=== PATIENT | female | born 1960 | race Caucasian/White ===

== ENCOUNTER 2018-04-01 19:23 | Emergency (ER) | payer SELFPAY ==
[2018-04-01] MEDS ORDERED: ONDANSETRON HCL INJ/PF 4 MG/2 ML SDV IV ONE (19:49)
[2018-04-01] MEDS ORDERED: HYDROMORPHONE HCL INJ/PF 2 MG/ML AMPULE IV ONE (19:49)
--- NOTE | 2018-04-01 19:56 | RADIOLOGY REPORT (SQ) ---
EXAM DESCRIPTION: WRIST LEFT 3 VIEWS COMPLETED DATE/TIME: 04/01/2018 7:39 pm REASON FOR STUDY: fell off horse COMPARISON: None. NUMBER OF VIEWS: Three views. TECHNIQUE: AP, lateral, and oblique radiographic images acquired of the left wrist. LIMITATIONS: None. FINDINGS: MINERALIZATION: Normal. BONES: Transverse fracture of the distal radius with volar angulation. There appears to be a fractur e component that extends to the articular surface. SOFT TISSUES: No soft tissue swelling. No foreign body. OTHER: No other significant finding. IMPRESSION: Fracture of the distal radius. TECHNICAL DOCUMENTATION: JOB ID: [id number] [employer]- All Rights Reserved Reading location - IP/workstation name: [email or web address]
--- NOTE | 2018-04-01 19:57 | ER Document Report ---
ED Hand/Wrist Injury - General Mode of Arrival: Ambulatory Information source: Patient TRAVEL OUTSIDE OF THE [place] IN LAST 30 DAYS: No <ROWDY VELASQUEZ - Last Filed: 04/02/18 00:25> <MANASA TRIANA - Last Filed: 04/02/18 00:28> - General Chief Complaint: Wrist Injury Stated Complaint: LEFT WRIST INJURY Time Seen by Provider: 04/01/18 19:40 Notes: Patient is a 57 year old female with hypothyroidism, osteopenia and high cholesterol presents to the emergency department complaining of left wrist pain and swelling after a fall. Patient states she fell off of her horse prior to arrival today stating she landed on her buttocks and then left wrist further stating she heard and felt something "crack". She complains of numbness and a cool sensations of her left hands and fingers as well as some nausea. She denies head trauma, loss of consciousness or any other focal pain. Patient states she is right handed. Patient is currently taking Synthroid and Lovastatin. (ROWDY VELASQUEZ) - Related Data Allergies/Adverse Reactions: Penicillins Allergy (Verified 04/01/18 19:25) Past Medical History - General Information source: Patient - Social History Smoking Status: Current Some Day Smoker Cigarette use (# per day): Yes Chew tobacco use (# tins/day): No Smoking Education Provided: No Frequency of alcohol use: Occasional Drug Abuse: None Family History: Reviewed & Not Pertinent - Past Medical History Cardiac Medical History: Reports: Hx Hypercholesterolemia Endocrine Medical History: Reports: Hx Hypothyroidism Musculoskeletal Medical History: Reports Other - Osteopenia <ROWDY VELASQUEZ - Last Filed: 04/02/18 00:25> Review of Systems - Review of Systems Constitutional: No symptoms reported EENT: No symptoms reported Cardiovascular: No symptoms reported Respiratory: No symptoms reported Gastrointestinal: No symptoms reported Genitourinary: No symptoms reported Female Genitourinary: No symptoms reported Musculoskeletal: See HPI Skin: No symptoms reported Hematologic/Lymphatic: No symptoms reported Neurological/Psychological: No symptoms reported -: Yes All other systems reviewed and negative <ROWDY VELASQUEZ - Last Filed: 04/02/18 00:25> Physical Exam <ROWDY VELASQUEZ - Last Filed: 04/02/18 00:25> <MANASA TRIANA - Last Filed: 04/02/18 00:28> - Vital signs Vitals: BP Pulse Ox 118/89 H 100 04/01/18 19:51 04/01/18 19:51 - Notes Notes: GENERAL: Alert, interacts well. No other signs of trauma or tenderness to palpation outside of what is described in extremities. HEAD: Normocephalic, atraumatic. EYES: Pupils equal, round, and reactive to light. Extraocular movements intact. ENT: Oral mucosa moist, tongue midline. NECK: Full range of motion. Supple. Trachea midline. No midline bony tenderness to palpation. LUNGS: No respiratory distress. ABDOMEN: Soft, non-tender. Non-distended. EXTREMITIES: Moves all 4 extremities spontaneously. There is a dorsal deformity to the left wrist which is tender to palpation. Digits 3-5 are cool to touch compared to digits 1 and 2. Capillary refill normal. Sensation is intact. Radial pulses 2/4 bilaterally. No cyanosis. NEUROLOGICAL: Alert and oriented x3. Normal speech. PSYCH: Normal affect, normal mood. SKIN: Dry. Superficial abrasion to the volar aspect of the left wrist, no active bleeding. Ant bites to the dorsal aspect of the left wrist, patient states these were presents before the fall. (ROWDY VELASQUEZ) Course <ROWDY VELASQUEZ - Last Filed: 04/02/18 00:25> <MANASA TRIANA - Last Filed: 04/02/18 00:28> - Re-evaluation Re-evalutation: 04/01/18 21:19 X-ray shows fracture of distal radius and dislocation of the wrist. Patient was given ketamine after risks and benefits of conscious sedation and reduction were discussed, patient tolerated reduction well, splint was placed, postreduction x-rays reveal reduction of the dislocation and acceptable alignment of the fracture. There is a fracture through the articular surface of the radius. There were superficial abrasions over the volar aspect of the left wrist which the patient recalls from prior. There is no active bleeding. I do not think this is an open fracture. I did discuss this case with Dr. Burnett including the fact that there are several breaks in the skin none of which have any bleeding coming from them or appear to be new. We both agree that this is not an open fracture and no antibiotics are indicated in this case. He agrees to see the patient in follow-up as an outpatient in his office on Sunday. The patient is instructed to call his office first thing tomorrow morning to arrange outpatient follow-up. Patient was placed in a sugar tong splint as well as a sling. 04/02/18 00:27 (MANASA TRIANA) - Vital Signs Vital signs: Temp Pulse Resp BP Pulse Ox 98.5 F 88 19 115/82 99 04/01/18 21:44 04/01/18 20:53 04/01/18 21:30 04/01/18 21:30 04/01/18 21:30 Procedures - Immobilization Left Distal Wrist Time completed: 20:40 Pre-Proc Neuro Vasc Exam: Normal Immobilizer type: Sugar tong Performed by: Provider, PCT Post-Proc Neuro Vasc Exam: Normal Alignment checked and good: Yes - Joint Reduction/Fracture Care Left Distal Wrist Time completed: 20:37 Consent obtained: Yes Conscious sedation: Yes Pre-procedure NV exam: Yes Fracture: Closed Post-procedure NV exam: Yes Post-reduction x-ray: Joint reduced Reduction attempts: 1 Complications: No <ROWDY VELASQUEZ - Last Filed: 04/02/18 00:25> - Immobilization Left Distal Wrist Post-Proc Neuro Vasc Exam: Unchanged from pre-exam left arm sling Pre-Proc Neuro Vasc Exam: Normal Immobilizer type: Sling Performed by: PCT Post-Proc Neuro Vasc Exam: Normal, Unchanged from pre-exam Alignment checked and good: Yes <MANASA TRIANA - Last Filed: 04/02/18 00:28> Discharge <ROWDY VELASQUEZ - Last Filed: 04/02/18 00:25> <MANASA TRIANA - Last Filed: 04/02/18 00:28> - Discharge Clinical Impression: Closed left radial fracture Qualifiers: Encounter type: initial encounter Radius location: distal Fracture morphology: other intra-articular Qualified Code(s): S52.572A - Other intraarticular fracture of lower end of left radius, initial encounter for closed fracture Left wrist dislocation Qualifiers: Encounter type: initial encounter Qualified Code(s): S63.005A - Unspecified dislocation of left wrist and hand, initial encounter Fall Qualifiers: Encounter type: initial encounter Qualified Code(s): W19.XXXA - Unspecified fall, initial encounter Condition: Stable Disposition: HOME, SELF-CARE Additional Instructions: I spoke with Dr. Burnett, he would like you to call his office first thing tomorrow morning to arrange a follow-up appointment for Sunday for your fracture and dislocation of your left wrist. You have been placed in a splint. If your fingers become numb and tingly, you cannot feel them please loosen the splint. If this does not improve the sensation to her fingers please return to the emergency department. Please take ibuprofen 800 mg every 8 hours as needed for pain. If this does not work you may also take the Percocet as directed. Prescriptions: Ondansetron [Zofran Odt 4 mg Tablet] 1 - 2 tab PO Q4H PRN #15 tab.rapdis PRN Reason: For Nausea/Vomiting Oxycodone HCl/Acetaminophen [Percocet 5-325 mg Tablet] 1 tab PO Q4H PRN #15 tablet PRN Reason: Forms: Return to Work Referrals: YUNI BURNETT DO [ACTIVE STAFF] - 04/03/18 (Call tomorrow morning to arrange a follow-up appointment for Sunday.) Scribe Attestation: 04/02/18 00:28 I personally performed the services described in the documentation, reviewed and edited the documentation which was dictated to the scribe in my presence, and it accurately records my words and actions. (MANASA TRIANA) Scribe Documentation - Scribe Written by Scribe:: Ye Perales, 04/01/2018 20:03 acting as scribe for :: Joshua <ROWDY VELASQUEZ - Last Filed: 04/02/18 00:25>
[2018-04-01] MEDS ORDERED: KETAMINE HCL INJ 500 MG/10 ML VIAL IV ONE ×2 (20:09→20:45)
[2018-04-01 21:38] VITALS: BP 115/82
[2018-04-01] MEDS ORDERED: OXYCODONE-ACETAMINOPHEN 5-325 MG TABLET PO ONE (21:39)
--- NOTE | 2018-04-01 21:44 | RADIOLOGY REPORT (SQ) ---
EXAM DESCRIPTION: XR WRIST 1-2 VIEWS COMPLETED DATE/TME: 04/01/2018 20:46 CLINICAL HISTORY: 57 years, Female, post-reduction COMPARISON: 04/01/2018 NUMBER OF VIEWS: Two TECHNIQUE: AP and lateral LIMITATIONS: None. FINDINGS: Overlying cast material limits fine bony detail. Note is again made of the fracture of the distal radius. There has been some interval reduction with improvement in alignment. Fracture appears to extend to the articular surface. IMPRESSION: Interval reduction of comminuted intra-articular distal radial fracture with improved alignment 2010 [employer]- All Rights Reserved
== END 2018-04-01 22:00 | disposition home or self-care (01) ==
LOC: ER 19:23
PROC: 0PSJXZZ Reposition Left Radius, External Approach (ICD-10-PCS; principal; 2018-04-01)
DX: S63.005A Unspecified dislocation of left wrist and hand, initial encounter (principal); S52.572A Other intraarticular fracture of lower end of left radius, initial encounter for closed fracture; M25.532 Pain in left wrist; M79.89 Other specified soft tissue disorders; R11.0 Nausea; W19.XXXA Unspecified fall, initial encounter; F17.210 Nicotine dependence, cigarettes, uncomplicated
CPT/HCPCS: 99284; 99153; 99152; 96374; 96375; 73100; 73110; 25605; J3490; J1170; J2405

== ENCOUNTER 2018-04-09 08:12 | Day surgery (SDC) | payer SELFPAY ==
[2018-04-05 10:51] LABS: APPEARANCE,URINE CLEAR; BILIRUBIN,URINE NEGATIVE (NEGATIVE); COLOR,URINE STRAW; GLUCOSE, URINE NEGATIVE (NEGATIVE); KETONES,URINE NEGATIVE (NEGATIVE); LEUKOCYTE ESTERASE,URINE NEGATIVE (NEGATIVE); NITRITE,URINE NEGATIVE (NEGATIVE); PROTEIN,URINE NEGATIVE (NEGATIVE); URINE SPECIFIC GRAVITY 1.004; UROBILINOGEN,URINE NEGATIVE mg/dL (<2.0)
[2018-04-05 11:41] LABS: HEMATOCRIT 36.6 % (36.0-47.0); HEMOGLOBIN 12.3 g/dL (12.0-15.5); MEAN CORPUSCULAR HEMOGLOBIN 30.4 pg (27.0-33.4); MEAN CORPUSCULAR HGB CONC 33.5 g/dL (32.0-36.0); MEAN CORPUSCULAR VOLUME 91 fl (80-97); PLATELET COUNT 263 10^3/uL (150-450); RED BLOOD COUNT 4.05 10^6/uL (3.72-5.28); RED CELL DISTRIBUTION WIDTH 13.5 % (11.5-14.0); WHITE BLOOD COUNT 9.8 10^3/uL (4.0-10.5)
[2018-04-05 12:04] LABS: ANION GAP 8 (5-19); BLOOD UREA NITROGEN 13 mg/dL (7-20); CALCIUM 9.1 mg/dL (8.4-10.2); CARBON DIOXIDE 27 mmol/L (22-30); CHLORIDE 107 mmol/L (98-107); GLUCOSE 86 mg/dL (75-110); POTASSIUM 4.4 mmol/L (3.6-5.0); SODIUM 141.7 mmol/L (137-145)
[~2018-04-09 08:12] MED LIST: BUPIVACAINE HCL 0.5 % INJ/PF 30 ML SDV ONE; CLINDAMYCIN 600 MG/D5W RTU 600 MG/50 ML RTUPB IV ONE; CLINDAMYCIN 600 MG/D5W RTU 600 MG/50 ML RTUPB IV PRN; LACTATED RINGERS 1000 ML IV PRN; LIDOCAINE 0.5% INJ-PF (5 MG/ML) 50 ML SDV SUBCUT PRN
[2018-04-09] MEDS ORDERED: FENTANYL CITRATE INJ/PF 100 MCG/2 ML AMPUL ONE ×2 (08:35→12:34)
[2018-04-09] MEDS ORDERED: MIDAZOLAM 2 MG/2 ML INJ ONE (08:35)
[2018-04-09] MEDS ORDERED: ONDANSETRON HCL INJ/PF 4 MG/2 ML SDV ONE ×2 (08:35→14:35)
[2018-04-09] MEDS ORDERED: DEXAMETHASONE SOD PHOSPHATE INJ 4 MG/1 ML VIAL ONE (08:35)
[2018-04-09] MEDS ORDERED: PROPOFOL INJ 200 MG/20 ML VIAL IV ONE (08:35)
[2018-04-09] MEDS ORDERED: ACETAMINOPHEN 1,000 MG/100 ML RTUPB IV ONE (08:35)
[2018-04-09] MEDS ORDERED: PROMETHAZINE HCL INJ 25 MG/1 ML VIAL IV PRN ×2 (10:24)
[2018-04-09] MEDS ORDERED: DIPHENHYDRAMINE HCL 50 MG/ML VIAL IV PRN (10:24)
[2018-04-09] MEDS ORDERED: ONDANSETRON HCL INJ/PF 4 MG/2 ML SDV IV PRN ×2 (10:24→13:07)
[2018-04-09] MEDS ORDERED: MORPHINE SULFATE 10 MG/ML INJ IV PRN (10:24)
[2018-04-09] MEDS ORDERED: MEPERIDINE HCL/PF INJ 25 MG/1 ML DISP.SYRIN IV PRN (10:24)
[2018-04-09] MEDS ORDERED: FENTANYL CITRATE INJ/PF 100 MCG/2 ML AMPUL IV PRN ×3 (10:24)
[2018-04-09] MEDS ORDERED: SUCCINYLCHOLINE CHLORIDE INJ 200 MG/10 ML VIAL ONE (10:25)
[2018-04-09] MEDS ORDERED: OXYCODONE-ACETAMINOPHEN 5-325 MG TABLET PO PRN (13:07)
--- NOTE | 2018-04-09 13:07 | Operative Report ---
Operative Report DATE OF SURGERY: 04/09/18 PREOPERATIVE DIAGNOSIS: Left >3 part distal radius fracture POSTOPERATIVE DIAGNOSIS: Same OPERATION: ORIF left 3 part distal radius fracture w/ distraction bridge plate SURGEON: YUNI CARMONA ANESTHESIA: GA ESTIMATED BLOOD LOSS: Minimal PROCEDURE: Indication for above procedure: 57-year-old female who sustained a fall from a horse onto her left wrist. Patient was seen at the emergency room where x-rays demonstrated a fracture and closed reduction was performed obtaining improved alignment. Patient followed up at my office at which point repeat radiographs demonstrate subsidence and increased displacement. Given the amount of comminution and instability of the fracture decision was made to proceed with operative treatment. Procedure In Detail: Left Patient was seen and evaluated in the preoperative holding area. The LEFT upper extremity was initialized and marked. Patient received 2g of Ancef IV for bacterial prophylaxis. Patient was taken back to the operative room where transferred to the operative table and placed under general anesthesia. Once they were adequately anesthetized a nonsterile tourniquet was placed on the upper extremity. A surgical team debriefing was performed ensuring all instrumentation was available, the surgical procedure was discussed with possible concerns reviewed. The upper extremity was prepped with chlorhexidine and alcohol and draped in a sterile fashion. A timeout was done identifying correct patient, procedure and extremity everyone in attendance agree with this and verbalized no concerns. The extremity was exsanguinated the tourniquet was inflated to 250 mmHg. A longitudinal skin incision was made via a volar approach of Edson along the FCR tendon sheath. The FCR tendon sheath was opened and the FCR retracted ulnarly, the palmar cutaneous branch of the median nerve was identified and protected throughout the entirety of the case. The radial artery was identified and retracted radially. Blunt dissection was performed to the FPL which was carefully sweeped ulnarly. This brought me to the pronator quadratus which was elevated off of the distal radius via sharp dissection with a 15 blade to allow later repair. Inspection of the fracture demonstrated an unusual pattern with significant comminution along the metaphyseal region with a coronal split that extended into the articular surface and a split just proximal to the volar lip extending into the radial styloid. There was significant radial styloid comminution as well given the limited real estate for fixation into the distal fragment I did not feel standard volar plating would be adequate. Thus a Acumed volar ulnar corner fragment piece was K wire into position. Given a small fracture fragments and osteopenic bone fixation of the volar ulnar corner would be achieved with suture fixation as opposed to hardware. 2 horizontal mattress FiberWire sutures were placed to the volar capsule and secured to the plate which adequately brought the volar ulnar corner into a reduced position. I then obtained further fixation distally with 2 additional locking screws which acted as a rafting type mechanism to the shear fragment of the articular surface. Fixation was then completed proximally with 3 additional bicortical screws. C-arm fluoroscopy was obtained which demonstrated acceptable alignment of the articular surface and church of the volar ulnar corner fragment with normal teardrop angle. Given the amount of comminution I do not feel additional volar plating or radial styloid plating would provide adequate fixation and thus decision was made to proceed with distraction bridge plating. Longitudinal skin incision was made over the third metacarpal. Blunt dissection performed. The extensor tendons were retracted in a ulnar direction and the periosteum elevated. I then bluntly dissected proximally deep to the third dorsal compartment with a periosteal elevator. A longitudinal skin incision was made over the third dorsal compartment to ensure there would not be impingement of the extensor tendons onto the distraction bridge plate. The distraction bridge plate was then tunneled from the distal incision to proximally. A longitudinal skin incision was made overlying the plate blunt dissection performed. Branches of the superficial radial nerve were identified and retracted. The interval between the EDC and ECRB/ECRL was utilized to localize the plate. This was then fixated distally within the oblong hole. Proximal fixation was then obtained with a bicortical 3.5 millimeter screw. C- arm fluoroscopy was then obtained confirming adequate reduction of the distal radius fracture and articular surface once this was confirmed I completed fixation distally with 3 additional locking screws. Proximal fixation was complete with 2 additional locking screws. Final C-arm fluoroscopy was obtained confirming acceptable reduction. There was evidence of DRUJ instability thus a 0.054 K wire was placed from the distal radius into the distal ulna providing stability to the DRUJ. The pin was then cut and bent and left outside the skin. All skin incisions were closely irrigated with normal saline. Any peripheral veins were controlled with bipolar cautery. The pronator quadratus was closed with interrupted 3-0 Monocryl suture. Subcutaneous tissues closed with 4-0 Monocryl suture. Tourniquet was deflated compression was held and any bleeding controlled until the wound was dry. Skin incisions were closed with running 4- 0 nylon suture. 30 cc of 0.5% Marcaine without epinephrine was injected for postoperative pain control. Patient was placed in a volar resting splint. Sponge counts, instrument counts, needle counts counts were correct. Patient was then awoken from anesthesia. Transferred from the operating room table to the operating room stretcher. There was no intraoperative complications patient tolerated procedure well stable to PACU. Postoperative plan: Patient will be switched to a removal brace at her first postoperative followup visit and begin range of motion. Patient is encouraged to start vitamin C 500 mg daily for 51 days. Will obtain radiographs at followup of the wrist.
[2018-04-09] MEDS: FENTANYL CITRATE INJ/PF 100 MCG/2 ML AMPUL ONE ×2 (13:08→13:16)
--- NOTE | 2018-04-09 13:08 | Discharge Summary ---
Discharge Summary (SDC) - Discharge Final Diagnosis: Left distal radius fracture Date of Surgery: 04/09/18 Discharge Date: 04/09/18 Condition: Good Treatment or Instructions: Schedule Follow Up w/ Dr. Seth Burnett @ [facility] to be seen in 10-14 days or as scheduled [place]: [place]: [place]: Ice and elevate Keep splint clean/dry/intact. If your fingers become numb please unwrap the Shyam wrap but leave the splint in place, if the sensation does not return within 30 minutes please return to the emergency department. May begin finger range of motion attempting to make full fist. Please use ibuprofen (Motrin or Advil) 600-800 mg every 8 hours as needed for pain or fever DO NOT TAKE w/ TORADOL may use once TORADOL complete. You may also use acetaminophen (Tylenol) 1000 mg every 4-6 hours as needed for pain or fever. Please be aware that many medications contain acetaminophen, do not exceed a total of 1000 mg of acetaminophen every 6 hours. If ibuprofen and acetaminophen are not sufficient for your pain you may take the Percocet/Cotati. Please be aware that the Percocet/Cotati does contain Tylenol. Stool softener of choice when on pain medication. vitamin C 500 mg daily for 51 days. Prescriptions: Ketorolac Tromethamine [Toradol 10 mg Tablet] 10 mg PO Q8HP PRN #10 tablet PRN Reason: Oxycodone HCl/Acetaminophen [Percocet 5-325 mg Tablet] 1 tab PO Q6 #25 tab Promethazine HCl [Phenergan 25 mg Tablet] 25 mg PO Q8 PRN #20 tablet PRN Reason:
[2018-04-09] MEDS: HYDROMORPHONE HCL INJ/PF 2 MG/ML AMPULE ONE ×2 (13:32→13:52)
[2018-04-09] MEDS ORDERED: OXYCODONE-ACETAMINOPHEN 5-325 MG TABLET ONE (14:29)
[2018-04-09 15:33] VITALS: BP 136/88
--- NOTE | 2018-04-09 15:40 | RADIOLOGY REPORT (SQ) ---
EXAM DESCRIPTION: NO CHG FLUORO; WRIST LEFT 2 VIEWS COMPLETED DATE/TIME: 04/09/2018 2:38 pm REASON FOR STUDY: ORIF LEFT WRIST ASST WITH FLUORO IN OR COMPARISON: 04/01/2018 FLUOROSCOPY TIME: 1 minute 17 seconds 9 Images saved to PACS LIMITATIONS: None. PROCEDURE: ORIF radial fracture FINDINGS: Images obtained from fluoro document placement of a volar compression plate on the distal radius and along dorsal plate extending from the mid radius to the 3rd metacarpal appear IMPRESSION: ORIF radial fracture. COMMENT: PQRS 6045F: Fluoroscopy time of the procedure is documented in the report. TECHNICAL DOCUMENTATION: JOB ID: [id number] [employer]- All Rights Reserved Reading location - IP/workstation name: [email or web address]
--- NOTE | 2018-04-09 15:40 | RADIOLOGY REPORT (SQ) ---
EXAM DESCRIPTION: NO CHG FLUORO; WRIST LEFT 2 VIEWS COMPLETED DATE/TIME: 04/09/2018 2:38 pm REASON FOR STUDY: ORIF LEFT WRIST ASST WITH FLUORO IN OR COMPARISON: 04/01/2018 FLUOROSCOPY TIME: 1 minute 17 seconds 9 Images saved to PACS LIMITATIONS: None. PROCEDURE: ORIF radial fracture FINDINGS: Images obtained from fluoro document placement of a volar compression plate on the distal radius and along dorsal plate extending from the mid radius to the 3rd metacarpal appear IMPRESSION: ORIF radial fracture. COMMENT: PQRS 6045F: Fluoroscopy time of the procedure is documented in the report. TECHNICAL DOCUMENTATION: JOB ID: [id number] [employer]- All Rights Reserved Reading location - IP/workstation name: [email or web address]
== END 2018-04-09 15:25 | disposition home or self-care (01) ==
LOC: OROUT 08:12
PROVIDERS: ATTEND Orthopaedic Surgery
DX: S52.572A Other intraarticular fracture of lower end of left radius, initial encounter for closed fracture (principal); V80.010A Animal-rider injured by fall from or being thrown from horse in noncollision accident, initial encounter; M25.532 Pain in left wrist; E03.9 Hypothyroidism, unspecified; E78.00 Pure hypercholesterolemia, unspecified; F17.210 Nicotine dependence, cigarettes, uncomplicated; K76.0 Fatty (change of) liver, not elsewhere classified; K58.9 Irritable bowel syndrome, unspecified; Z79.899 Other long term (current) drug therapy; Z88.0 Allergy status to penicillin
CPT/HCPCS: 36415; 85027; 80048; 81001; 73100; 25609; C1713 ×6; C1769 ×2; J2250; J3490; J1100; J3010; J1170; J0330; J2405; J2704; J0131; 01830

== ENCOUNTER 2018-08-13 07:08 | Day surgery (SDC) | payer BC ==
[2018-08-06 09:55] LABS: HEMATOCRIT 36.9 % (36.0-47.0); HEMOGLOBIN 12.6 g/dL (12.0-15.5); MEAN CORPUSCULAR HEMOGLOBIN 30.4 pg (27.0-33.4); MEAN CORPUSCULAR VOLUME 89 fl (80-97); PLATELET COUNT 289 10^3/uL (150-450); RED BLOOD COUNT 4.13 10^6/uL (3.72-5.28); RED CELL DISTRIBUTION WIDTH 14.4 % (11.5-14.0); WHITE BLOOD COUNT 7.2 10^3/uL (4.0-10.5)
[2018-08-06 09:58] LABS: APPEARANCE,URINE CLEAR; BILIRUBIN,URINE NEGATIVE (NEGATIVE); COLOR,URINE STRAW; GLUCOSE, URINE NEGATIVE (NEGATIVE); KETONES,URINE NEGATIVE (NEGATIVE); LEUKOCYTE ESTERASE,URINE NEGATIVE (NEGATIVE); NITRITE,URINE NEGATIVE (NEGATIVE); PROTEIN,URINE NEGATIVE (NEGATIVE); URINE SPECIFIC GRAVITY 1.003; UROBILINOGEN,URINE NEGATIVE mg/dL (<2.0)
[2018-08-06 10:18] LABS: ANION GAP 9 (5-19); BLOOD UREA NITROGEN 21 mg/dL (7-20); CALCIUM 9.6 mg/dL (8.4-10.2); CARBON DIOXIDE 26 mmol/L (22-30); CHLORIDE 105 mmol/L (98-107); GLUCOSE 100 mg/dL (75-110); POTASSIUM 4.2 mmol/L (3.6-5.0); SODIUM 140.1 mmol/L (137-145)
--- NOTE | 2018-08-06 10:34 | RADIOLOGY REPORT (SQ) ---
EXAM DESCRIPTION: CHEST PA/LATERAL COMPLETED DATE/TIME: 08/06/2018 10:16 am REASON FOR STUDY: PRE-OP COMPARISON: None. EXAM PARAMETERS: NUMBER OF VIEWS: two views TECHNIQUE: Digital Frontal and Lateral radiographic views of the chest acquired. RADIATION DOSE: NA LIMITATIONS: none FINDINGS: LUNGS AND PLEURA: Small focal density in the right upper lobe seen on the frontal view at the level of the anterior end of the right 1st rib. Lungs otherwise clear. No lobar infiltrates. N o pleural effusion or pneumothorax. MEDIASTINUM AND HILAR STRUCTURES: No masses or contour abnormalities. HEART AND VASCULAR STRUCTURES: Heart normal size. No evidence for failure. BONES: No acute findings. HARDWARE: None in the chest. OTHER: No other significant finding. IMPRESSION: SMALL FOCAL DENSITY IN THE RIGHT UPPER LOBE. THIS MAY BE ARTIFACT DUE TO SCLEROSIS IN T HE ANTERIOR END OF THE RIGHT 1ST RIB. CANNOT EXCLUDE UNDERLYING LUNG NODULE. WOULD CONSIDER CT OF T HE CHEST FOR FURTHER EVALUATION. OTHERWISE NO ACUTE OR SIGNIFICANT FINDINGS. TECHNICAL DOCUMENTATION: JOB ID: [id number] [employer]- All Rights Reserved Reading location - IP/workstation name: [facility]
[~2018-08-13 07:08] MED LIST changes: +ACETAMINOPHEN 1,000 MG/100 ML RTUPB IV ONE; -BUPIVACAINE HCL 0.5 % INJ/PF 30 ML SDV ONE; -CLINDAMYCIN 600 MG/D5W RTU 600 MG/50 ML RTUPB IV ONE; +DEXAMETHASONE SOD PHOSPHATE INJ 4 MG/1 ML VIAL ONE; +FENTANYL CITRATE INJ/PF 100 MCG/2 ML AMPUL ONE; +LIDOCAINE 2% INJ-PF (20 MG/ML) 10 ML AMPUL ONE; +MIDAZOLAM 2 MG/2 ML INJ ONE; +ONDANSETRON HCL INJ/PF 4 MG/2 ML SDV ONE; +PROPOFOL INJ 200 MG/20 ML VIAL IV ONE
[2018-08-13] MEDS ORDERED: CLINDAMYCIN 600 MG/D5W RTU 600 MG/50 ML RTUPB IV ONE (07:21)
[2018-08-13] MEDS ORDERED: BUPIVACAINE HCL 0.5 % INJ/PF 30 ML SDV ONE (07:30)
[2018-08-13] MEDS ORDERED: SCOPOLAMINE HYDROBROMIDE 1.5 MG PATCH.TD72 ONE (08:04)
[2018-08-13] MEDS ORDERED: FAMOTIDINE INJ/PF 20 MG/2 ML SDV IV ONE (08:04)
[2018-08-13] MEDS ORDERED: ALBUTEROL SULFATE 0.083% NEB 2.5 MG/3 ML AMPUL NEB ONE (08:42)
[2018-08-13] MEDS ORDERED: DIPHENHYDRAMINE HCL 50 MG/ML VIAL IV PRN (09:34)
[2018-08-13] MEDS ORDERED: MEPERIDINE HCL/PF INJ 25 MG/1 ML DISP.SYRIN IV PRN (09:34)
[2018-08-13] MEDS ORDERED: PROMETHAZINE HCL INJ 25 MG/1 ML VIAL IV PRN ×2 (09:34)
[2018-08-13] MEDS ORDERED: MORPHINE SULFATE 10 MG/ML INJ IV PRN (09:34)
[2018-08-13] MEDS ORDERED: ONDANSETRON HCL INJ/PF 4 MG/2 ML SDV IV PRN ×2 (09:34→10:10)
[2018-08-13] MEDS ORDERED: FENTANYL CITRATE INJ/PF 100 MCG/2 ML AMPUL IV PRN ×3 (09:34)
[2018-08-13] MEDS: FENTANYL CITRATE INJ/PF 100 MCG/2 ML AMPUL ONE ×2 (10:03→10:08)
--- NOTE | 2018-08-13 10:08 | Operative Report ---
Operative Report DATE OF SURGERY: 08/13/18 PREOPERATIVE DIAGNOSIS: Retained hardware left wrist with MP joint contracture index through small finger POSTOPERATIVE DIAGNOSIS: Same OPERATION: Removal of hardware left wrist with extensor tenolysis SURGEON: YUNI CARMONA ANESTHESIA: GA COMPLICATIONS: None ESTIMATED BLOOD LOSS: Minimal PROCEDURE: Indication for above procedure: 58-year-old female who sustained a fracture to her left wrist. She underwent open reduction internal fixation with placement of distraction bridge plate. Patient's fracture healed this time progressed. But continued to have stiffness and obvious retained hardware limiting her wrist motion. Decision was then made to proceed with operative intervention. Risks and benefits were explained patient verbalized understanding consented for the procedure. Procedure In Detail: Patient was seen and evaluated in the preoperative holding area. The LEFT upper extremity was initialized and marked. Patient received 600 mg of clindamycin IV for bacterial prophylaxis. Patient was taken back to the operative room where transferred to the operative table and placed under general anesthesia. Once they were adequately anesthetized a nonsterile tourniquet was placed on the upper extremity. A surgical team debriefing was performed ensuring all instrumentation was available, the surgical procedure was discussed with possible concerns reviewed. The upper extremity was prepped with chlorhexidine and alcohol and draped in a sterile fashion. A timeout was done identifying correct patient, procedure and extremity everyone in attendance agree with this and verbalized no concerns. The extremity was exsanguinated the tourniquet was inflated to 250 mmHg. Proximal and distal incisions were utilized. Blunt dissection was performed. Any peripheral veins were coagulated with bipolar cautery. The EDC tendons were identified and retracted to expose the distal aspect of the plate. Screws were successfully removed. Tenolysis was performed to the adjacent EDC tendons of the index middle ring and small finger. Approximately the brachioradialis and ECRL interval was approached to identify the plate. The screws were then removed along with the plate. Screw holes were curetted and any excess bone debrided. Manipulation of the digits and wrist achieved wrist extension of 65 degrees wrist flexion of 55 degrees, full IP/MP joint range of motion, pronation and supination. Incision was made over the fracture site and the EDC tendons were identified and further tenolysed proximally and distally. There was a small area of overgrown both coinciding with Julian's tubercle which was excised to avoid postoperative extensor tendon irritation. Wounds were then copiously irrigated with normal saline. Skin was closed with 4-0 nylon horizontal mattress. 20 cc of 0.5% bupivacaine without epinephrine was injected for postoperative pain control. Patient was placed in a soft dressing and tourniquet deflated. Sponge counts, instrument counts, needle counts were correct. Patient was then awoken from anesthesia. Transferred from the operating room table to the operating room stretcher. There was no intraoperative complications patient tolerated procedure well stable to PACU. Postoperative plan: Patient will follow in the office in 2 weeks for suture removal. Will attempt to start her on occupational therapy immediately postoperatively to achieve maximal range of motion and correction.
[2018-08-13] MEDS ORDERED: HYDROMORPHONE HCL INJ/PF 2 MG/ML AMPULE IV PRN (10:10)
--- NOTE | 2018-08-13 10:10 | Discharge Summary ---
Discharge Summary (SDC) - Discharge Final Diagnosis: Left distal radius fracture Date of Surgery: 08/13/18 Discharge Date: 08/13/18 Condition: Good Treatment or Instructions: Schedule Follow Up w/ Dr. Seth Burnett @ [facility] for Surgery to be seen in 10-14 days or as scheduled [place]: [place]: [place]: May remove dressing on postop day #3, keep incision covered and dry. Ice and elevate May begin finger range of motion attempting to make full fist. Stool softener of choice when on pain medication. USE OF [id number] IBUPROFEN: Ibuprofen (Advil, Nuprin, Medipren, Motrin IB) is a medication for fever and pain control. In addition, it has anti- inflammatory effects which may be beneficial, especially in the treatment of injuries. It's best to take ibuprofen with food. Persons with ulcer disease or allergy to aspirin should notify their physician of this before taking ibuprofen. Ibuprofen can be given every four to six hours, for a total of four doses daily. Age Pain or fever dose Antiinflammatory dose 6-8 yr 200 mg (1 tab) 200 mg (1 tab) 9-11 yr 200 mg (1 tab) 200-400 mg (1-2 tab) 11-14 yr 200-400 mg (1-2 tab) 400 mg (2 tab) 15-adult 400 mg (2 tab) 600 mg (3 tab) ORAL NARCOTIC MEDICATION: You have been given a prescription for pain control. This medication is a narcotic. It's best taken with food, as nausea can result if taken on an empty stomach. Don't operate machinery or drive within six hours of taking this medication. Do not combine this medicine with alcohol, or with any medication which can cause sedation (such as cold tablets or sleeping pills) unless you get permission from the physician. Narcotics tend to cause constipation. If possible, drink plenty of fluids and eat a diet high in fiber and fruits. Please be aware that prescription narcotics also have the potential for abuse. People become addicted to these medications because of the general sense of wellbeing that they induce. This feeling along with a significant reduction in tension, anxiety, and aggression provides a stimulating seductive quality to these drugs. Once your pain is under control, we encourage you to discard your unused narcotics. Prescriptions: Ketorolac Tromethamine [Toradol 10 mg Tablet] 10 mg PO Q8HP PRN #12 tablet PRN Reason: Oxycodone HCl/Acetaminophen [Percocet 7.5-325 mg Tablet] 1 each PO Q6 PRN #25 tablet PRN Reason: Discharge Diet: As Tolerated Respiratory Treatments at Home: Deep Breathing/Coughing Discharge Activity: No Lifting Over 10 Pounds, No Lifting/Push/Pulling Report the Following to Your Physician Immediately: Fever over 101 Degrees, Unusual Bleeding, Redness, Swelling, Warmth, Increased Soreness
[2018-08-13] MEDS: OXYCODONE-ACETAMINOPHEN 5-325 MG TABLET PO PRN ×2 (10:12→11:12)
[2018-08-13] MEDS ORDERED: KETOROLAC TROMETHAMINE INJ/PF 30 MG/1 ML SDV ONE (10:29)
[2018-08-13] MEDS ORDERED: ACETAMINOPHEN 1,000 MG/100 ML RTUPB IV ONE (10:29)
[2018-08-13] MEDS ORDERED: OXYCODONE-ACETAMINOPHEN 5-325 MG TABLET ONE (11:06)
--- NOTE | 2018-08-13 12:33 | RADIOLOGY REPORT (SQ) ---
EXAM DESCRIPTION: NO CHG FLUORO; WRIST LEFT 2 VIEWS COMPLETED DATE/TIME: 08/13/2018 12:11 pm REASON FOR STUDY: HARDWARE REMOVAL LEFT WRIST ASST WITH FLUORO IN OR S52.532A COLLES' FRACTURE OF L EFT RADIUS, INIT FOR CLOS FX COMPARISON: None. FLUOROSCOPY TIME: 10 seconds 7 images saved to PACS. TECHNIQUE: Intra-operative images acquired during surgical procedure to evaluate progress. NUMBER OF IMAGES: 7 LIMITATIONS: None. FINDINGS: Selected images from plate and screw fixation of distal radial fracture performed in the o perating room. IMPRESSION: IMAGE(S) OBTAINED DURING PROCEDURE. COMMENT: Quality ID 145: Final reports for procedures using fluoroscopy that document radiation exp osure indices, or exposure time and number of fluorographic images (if radiation exposure indices are not available) Please consult full operative report of the attending physician for description of the procedure. TECHNICAL DOCUMENTATION: JOB ID: [id number] [employer]- All Rights Reserved Reading location - IP/workstation name: [email or web address]
--- NOTE | 2018-08-13 12:33 | RADIOLOGY REPORT (SQ) ---
EXAM DESCRIPTION: NO CHG FLUORO; WRIST LEFT 2 VIEWS COMPLETED DATE/TIME: 08/13/2018 12:11 pm REASON FOR STUDY: HARDWARE REMOVAL LEFT WRIST ASST WITH FLUORO IN OR S52.532A COLLES' FRACTURE OF L EFT RADIUS, INIT FOR CLOS FX COMPARISON: None. FLUOROSCOPY TIME: 10 seconds 7 images saved to PACS. TECHNIQUE: Intra-operative images acquired during surgical procedure to evaluate progress. NUMBER OF IMAGES: 7 LIMITATIONS: None. FINDINGS: Selected images from plate and screw fixation of distal radial fracture performed in the o perating room. IMPRESSION: IMAGE(S) OBTAINED DURING PROCEDURE. COMMENT: Quality ID 145: Final reports for procedures using fluoroscopy that document radiation exp osure indices, or exposure time and number of fluorographic images (if radiation exposure indices are not available) Please consult full operative report of the attending physician for description of the procedure. TECHNICAL DOCUMENTATION: JOB ID: [id number] [employer]- All Rights Reserved Reading location - IP/workstation name: [email or web address]
[2018-08-13] MEDS ORDERED: SUCCINYLCHOLINE CHLORIDE INJ 200 MG/10 ML VIAL ONE (12:53)
[2018-08-13] MEDS ORDERED: PHENYLEPHRINE HCL INJ/PF 10 MG/1 ML SDV ONE (12:53)
[2018-08-13 12:59] VITALS: BP 110/73
--- NOTE | 2018-08-13 19:31 | EKG REPORT ---
SEVERITY:- NORMAL ECG - SINUS RHYTHM : Confirmed by: Emily Abrams 13-Aug-2018 19:30:05
== END 2018-08-13 12:30 | disposition home or self-care (01) ==
LOC: OROUT 07:08
PROVIDERS: ATTEND Orthopaedic Surgery
DX: S52.532A Colles' fracture of left radius, initial encounter for closed fracture (principal); X58.XXXA Exposure to other specified factors, initial encounter; M24.542 Contracture, left hand; M19.90 Unspecified osteoarthritis, unspecified site; Z88.0 Allergy status to penicillin; Z79.899 Other long term (current) drug therapy; E03.9 Hypothyroidism, unspecified; E78.00 Pure hypercholesterolemia, unspecified; F17.210 Nicotine dependence, cigarettes, uncomplicated; K21.9 Gastro-esophageal reflux disease without esophagitis; Z79.51 Long term (current) use of inhaled steroids; K76.0 Fatty (change of) liver, not elsewhere classified; M85.80 Other specified disorders of bone density and structure, unspecified site
CPT/HCPCS: 36415; 85027; 80048; 81001; 71046; 73100; 93005; 93010; 26445 ×3; 20680; J2250; J3490 ×2; J1100; J3010; J1885; J2370; J0330; J2405; J2704; S0028; J0131; 01830

== ENCOUNTER 2018-11-14 11:08 | Day surgery (SDC) | payer BC ==
[2018-11-08 10:47] LABS: ABSOLUTE BASOPHILS # (AUTO) 0.1 10^3/uL (0.0-0.2); ABSOLUTE EOSINOPHILS # (AUTO) 0.3 10^3/uL (0.0-0.6); ABSOLUTE LYMPHOCYTES (AUTO) 2.3 10^3/uL (0.5-4.7); ABSOLUTE MONOCYTES (AUTO) 0.5 10^3/uL (0.1-1.4); BASOPHILS % (AUTO) 0.9 % (0-2); EOSINOPHILS % (AUTO) 4.7 % (0-6); HEMATOCRIT 38.2 % (36.0-47.0); LYMPHOCYTES % (AUTO) 37.7 % (13-45); MEAN CORPUSCULAR HEMOGLOBIN 29.8 pg (27.0-33.4); MEAN CORPUSCULAR HGB CONC 34.1 g/dL (32.0-36.0); MEAN CORPUSCULAR VOLUME 88 fl (80-97); MONOCYTES % (AUTO) 8.4 % (3-13); PLATELET COUNT 271 10^3/uL (150-450); RED BLOOD COUNT 4.37 10^6/uL (3.72-5.28); RED CELL DISTRIBUTION WIDTH 13.1 % (11.5-14.0); SEGMENTED NEUTROPHILS % (AUTO) 48.3 % (42-78); TOTAL CELLS COUNTED % (AUTO) 100 %; WHITE BLOOD COUNT 6.2 10^3/uL (4.0-10.5)
[2018-11-08 10:54] LABS: APPEARANCE,URINE CLEAR; BILIRUBIN,URINE NEGATIVE (NEGATIVE); COLOR,URINE COLORLESS; GLUCOSE, URINE NEGATIVE (NEGATIVE); KETONES,URINE NEGATIVE (NEGATIVE); LEUKOCYTE ESTERASE,URINE NEGATIVE (NEGATIVE); NITRITE,URINE NEGATIVE (NEGATIVE); PROTEIN,URINE NEGATIVE (NEGATIVE); URINE SPECIFIC GRAVITY 1.002; UROBILINOGEN,URINE NEGATIVE mg/dL (<2.0)
[2018-11-08 11:10] LABS: ANION GAP 9 (5-19); BLOOD UREA NITROGEN 21 mg/dL (7-20); CARBON DIOXIDE 25 mmol/L (22-30); CHLORIDE 107 mmol/L (98-107); GLUCOSE 84 mg/dL (75-110); POTASSIUM 4.4 mmol/L (3.6-5.0); SODIUM 140.7 mmol/L (137-145)
[~2018-11-14 11:08] MED LIST changes: -DEXAMETHASONE SOD PHOSPHATE INJ 4 MG/1 ML VIAL ONE; -LIDOCAINE 0.5% INJ-PF (5 MG/ML) 50 ML SDV SUBCUT PRN; -LIDOCAINE 2% INJ-PF (20 MG/ML) 10 ML AMPUL ONE; -ONDANSETRON HCL INJ/PF 4 MG/2 ML SDV ONE
[2018-11-14] MEDS ORDERED: SCOPOLAMINE HYDROBROMIDE 1.5 MG PATCH.TD72 ONE (12:08)
[2018-11-14] MEDS ORDERED: ALBUTEROL SULFATE 0.083% NEB 2.5 MG/3 ML AMPUL NEB ONE (12:08)
[2018-11-14] MEDS ORDERED: CLINDAMYCIN 600 MG/D5W RTU 600 MG/50 ML RTUPB IV ONE (12:09)
[2018-11-14] MEDS ORDERED: MORPHINE SULFATE 10 MG/ML INJ IV PRN ×2 (13:12→14:46)
[2018-11-14] MEDS ORDERED: FENTANYL CITRATE INJ/PF 100 MCG/2 ML AMPUL IV PRN ×3 (13:12)
[2018-11-14] MEDS ORDERED: ONDANSETRON HCL INJ/PF 4 MG/2 ML SDV IV PRN ×2 (13:12→14:46)
[2018-11-14] MEDS ORDERED: PROMETHAZINE HCL INJ 25 MG/1 ML VIAL IV PRN ×2 (13:12)
[2018-11-14] MEDS ORDERED: DIPHENHYDRAMINE HCL 50 MG/ML VIAL IV PRN (13:12)
[2018-11-14] MEDS ORDERED: MEPERIDINE HCL/PF INJ 25 MG/1 ML DISP.SYRIN IV PRN (13:12)
[2018-11-14] MEDS ORDERED: LIDOCAINE 1% INJ-PF (10 MG/ML) 30 ML SDV ONE (13:26)
--- NOTE | 2018-11-14 13:51 | Operative Report ---
Operative Report DATE OF SURGERY: 11/14/18 PREOPERATIVE DIAGNOSIS: Left small finger PIP/MP joint flexion contracture POSTOPERATIVE DIAGNOSIS: Same OPERATION: Left small finger PIP joint volar contracture release with flexor tenolysis, MCP joint capsulotomy SURGEON: YUNI CARMONA ANESTHESIA: LMAC COMPLICATIONS: None ESTIMATED BLOOD LOSS: Minimal PROCEDURE: Indication for above procedure: 58-year-old female who sustained a distal radius fracture requiring distraction plate plate fixation. Unfortunately postop the patient developed significant digital stiffness however distal radius did heal appropriately. Patient underwent hardware removal with tenolysis wrist range of motion and digit range of motion improved however patient continues to have flexion contracture of the small finger with questionable fracture of the proximal phalanx. 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 Procedure In Detail: Patient was seen and evaluated in the preoperative holding area. The LEFT upper extremity was initialized and marked. Patient received 2g of Ancef IV for bacterial prophylaxis. Patient was taken back to the operative room where transferred to the operative table. Once they were adequately anesthetized a nonsterile tourniquet was placed on the upper extremity. A surgical team debriefing was performed ensuring all instrumentation was available, the surgical procedure was discussed with possible concerns reviewed. A digital block was performed utilizing 10 mL of 1% lidocaine without epinephrine. The upper extremity was prepped with chlorhexidine and alcohol and draped in a sterile fashion. A timeout was done identifying correct patient, procedure and extremity everyone in attendance agree with this and verbalized no concerns. The extremity was exsanguinated the tourniquet was inflated to 250 mmHg. Mid lateral skin incision was made along the radial border of the small finger at the level of capsular and collateral tightness. Blunt dissection was performed. The radial neurovascular bundle was identified and retracted. The flexor sheath was elevated and the A3 bandar released. Flexor tenolysis was performed proximally and distally to allow adequate excursion. The assessment radial collateral ligament was then released from volar to dorsal improving patient's radial contracture. The volar plate was then released including the checkrein ligaments. Patient had full passive extension and flexion. Continued to have residual PIP joint active extension lag. Extensor tenolysis was performed but when patient attempted active extension no significant change. Any peripheral bleeding was controlled with bipolar cautery to the wound was dry. Once again once patient was awoken from anesthesia had full passive and active flexion/extension still residual malrotation with flexion. On passive examination patient continued to have tightness along the MCP joint likely contributing to her malrotation. Tourniquet was then reinflated to 250 mmHg. A longitudinal skin incision was made blunt dissection was performed. Any peripheral bleeding was controlled with bipolar cautery. The distal aspect of the sagittal band was incised to expose the MCP joint. Capsulotomy was made only after release patient had full passive flexion/extension of the PIP and MP joints. She was awoken from anesthesia and had full flexion of the MP and PIP joints actively without evidence of malrotation. Continue to have residual PIP joint extension lag. Tourniquet was once again deflated. Any peripheral bleeding was controlled with bipolar cautery into the wound was dry. Wounds were copiously irrigated with normal saline. Skin incision was closed with interrupted 4-0 nylon suture. Wound was dressed with Xeroform and a soft dressing. Sponge counts, instrument counts, needle counts counts were correct. Patient was then awoken from anesthesia. Transferred from the operating room table to the operating room stretcher. There was no intraoperative complications patient tolerated procedure well stable to PACU. Postoperative plan: Patient will follow-up in 2 weeks for wound check. We will begin occupational therapy immediately.
[2018-11-14] MEDS ORDERED: OXYCODONE-ACETAMINOPHEN 5-325 MG TABLET PO PRN (14:46)
--- NOTE | 2018-11-14 14:52 | Discharge Summary ---
Discharge Summary (SDC) - Discharge Final Diagnosis: Left Small Finger PIP Contracture Date of Surgery: 11/14/18 Discharge Date: 11/14/18 Condition: Good Treatment or Instructions: Schedule Follow Up w/ Dr. Seth Burnett @ [facility] for Surgery to be seen in 10-14 days or as scheduled [place]: [place]: [place]: May remove dressing on postop day #3, keep incision covered and dry. Ice and elevate May begin finger range of motion attempting to make full fist. Stool softener of choice when on pain medication. USE OF [id number] IBUPROFEN: Ibuprofen (Advil, Nuprin, Medipren, Motrin IB) is a medication for fever and pain control. In addition, it has anti- inflammatory effects which may be beneficial, especially in the treatment of injuries. It's best to take ibuprofen with food. Persons with ulcer disease or allergy to aspirin should notify their physician of this before taking ibuprofen. Ibuprofen can be given every four to six hours, for a total of four doses daily. Age Pain or fever dose Antiinflammatory dose 6-8 yr 200 mg (1 tab) 200 mg (1 tab) 9-11 yr 200 mg (1 tab) 200-400 mg (1-2 tab) 11-14 yr 200-400 mg (1-2 tab) 400 mg (2 tab) 15-adult 400 mg (2 tab) 600 mg (3 tab) ORAL NARCOTIC MEDICATION: You have been given a prescription for pain control. This medication is a narcotic. It's best taken with food, as nausea can result if taken on an empty stomach. Don't operate machinery or drive within six hours of taking this medication. Do not combine this medicine with alcohol, or with any medication which can cause sedation (such as cold tablets or sleeping pills) unless you get permission from the physician. Narcotics tend to cause constipation. If possible, drink plenty of fluids and eat a diet high in fiber and fruits. Please be aware that prescription narcotics also have the potential for abuse. People become addicted to these medications because of the general sense of wellbeing that they induce. This feeling along with a significant reduction in tension, anxiety, and aggression provides a stimulating seductive quality to these drugs. Once your pain is under control, we encourage you to discard your unused narcotics. Prescriptions: Oxycodone HCl/Acetaminophen [Percocet 5-325 mg Tablet] 1 tab PO Q6 PRN #25 tab PRN Reason: Discharge Diet: As Tolerated Respiratory Treatments at Home: Deep Breathing/Coughing Discharge Activity: No Lifting Over 10 Pounds, No Lifting/Push/Pulling Report the Following to Your Physician Immediately: Fever over 101 Degrees, Unusual Bleeding, Redness, Swelling, Warmth, Increased Soreness
[2018-11-14] MEDS ORDERED: ONDANSETRON HCL INJ/PF 4 MG/2 ML SDV ONE (14:56)
[2018-11-14] MEDS ORDERED: DEXAMETHASONE SOD PHOSPHATE INJ 4 MG/1 ML VIAL ONE (14:56)
[2018-11-14] MEDS ORDERED: KETOROLAC TROMETHAMINE 60 MG/2 ML SDV ONE (14:56)
[2018-11-14] MEDS: FENTANYL CITRATE INJ/PF 100 MCG/2 ML AMPUL ONE ×2 (14:57→15:02)
[2018-11-14] MEDS ORDERED: OXYCODONE-ACETAMINOPHEN 5-325 MG TABLET ONE (15:31)
--- NOTE | 2018-11-14 15:50 | RADIOLOGY REPORT (SQ) ---
EXAM DESCRIPTION: NO CHG FLUORO; FINGER LEFT COMPLETED DATE/TIME: 11/14/2018 3:15 pm REASON FOR STUDY: LEFT SMALL FINGER CONTRACTURE RELEASE ASST WITH FLUORO IN OR COMPARISON: None. FLUOROSCOPY TIME: 18 seconds 3 Images saved to PACS LIMITATIONS: None. PROCEDURE: Contracture release FINDINGS: Images from fluoro document the procedure. IMPRESSION: Contracture release. Refer to operative note for further information. COMMENT: PQRS 6045F: Fluoroscopy time of the procedure is documented in the report. TECHNICAL DOCUMENTATION: JOB ID: [id number] [employer]- All Rights Reserved Reading location - IP/workstation name: [email or web address]
--- NOTE | 2018-11-14 15:50 | RADIOLOGY REPORT (SQ) ---
EXAM DESCRIPTION: NO CHG FLUORO; FINGER LEFT COMPLETED DATE/TIME: 11/14/2018 3:15 pm REASON FOR STUDY: LEFT SMALL FINGER CONTRACTURE RELEASE ASST WITH FLUORO IN OR COMPARISON: None. FLUOROSCOPY TIME: 18 seconds 3 Images saved to PACS LIMITATIONS: None. PROCEDURE: Contracture release FINDINGS: Images from fluoro document the procedure. IMPRESSION: Contracture release. Refer to operative note for further information. COMMENT: PQRS 6045F: Fluoroscopy time of the procedure is documented in the report. TECHNICAL DOCUMENTATION: JOB ID: [id number] [employer]- All Rights Reserved Reading location - IP/workstation name: [email or web address]
[2018-11-14 16:45] VITALS: BP 95/60
== END 2018-11-14 16:40 | disposition home or self-care (01) ==
LOC: OROUT 11:08
PROVIDERS: ATTEND Orthopaedic Surgery
DX: M24.542 Contracture, left hand (principal); M25.532 Pain in left wrist; E03.9 Hypothyroidism, unspecified; E78.00 Pure hypercholesterolemia, unspecified; K76.0 Fatty (change of) liver, not elsewhere classified; K21.9 Gastro-esophageal reflux disease without esophagitis; F17.210 Nicotine dependence, cigarettes, uncomplicated; Z79.899 Other long term (current) drug therapy; K58.9 Irritable bowel syndrome, unspecified; Z88.0 Allergy status to penicillin; Z01.810 Encounter for preprocedural cardiovascular examination; Z01.811 Encounter for preprocedural respiratory examination
CPT/HCPCS: 01810; 36415; 80048; 81001; 85025; J0131; J1100; J1885; J2250; J2405; J2704; J3010; J3490